=== PATIENT | female | born 1935 | race Caucasian/White ===

== ENCOUNTER 2022-08-29 11:41 | Emergency (ER) | payer MEDICARE, SELFPAY ==
[2022-08-29 11:58] VITALS: BP 114/64; PULSE 90; RESP 16; TEMP 36.2; O2SAT 97
--- NOTE | 2022-08-29 14:27 | ED.URI ---
HPI - URI/Sore Throat General Chief Complaint: Upper Respiratory Infection Stated Complaint: vaginal itching and cough Time Seen by Provider: 08/29/22 14:20 Source: patient, RN notes reviewed and old records reviewed Mode of arrival: ambulatory Limitations: no limitations History of Present Illness HPI Narrative: 86 year old female present ambulatory to [facility] care with complaints of dry/loose cough, decreased appetite, trouble sleeping for the past 5 days. Patient reports that she has taken 2 rounds of Macrobid for UTI's and she has vaginal irritation from creams they gave her for vaginitis. Patient states that every time she uses cream she has irritation and burning. Patient reports that she was seen in the ER for UTI and vaginitis. Patient reports that she has not had any fevers, chills or body aches,she denies any urinary burning frequency or urgency. MD elicited complaint: cough, rhinorrhea and other (decreased appetite, vaginal irritation) Onset (ago): day(s) (cough) Treatments prior to arrival: other (Mucinex) Related Data Home Medications Medication Instructions Recorded Confirmed atorvastatin 10 mg tablet 10 mg PO DAILY 08/29/22 08/29/22 clotrimazole 1 % topical cream 1 applic topical BID 08/29/22 08/29/22 gabapentin 100 mg capsule 100 mg PO TID 08/29/22 08/29/22 glucosamine sulfate 500 mg tablet 500 mg PO DAILY 08/29/22 08/29/22 (Glucosamine) hydrochlorothiazide 12.5 mg tablet 12.5 mg PO DAILY 08/29/22 08/29/22 losartan 25 mg tablet 25 mg PO DAILY 08/29/22 08/29/22 metoprolol succinate 25 mg 25 mg PO DAILY 08/29/22 08/29/22 tablet,extended release 24 hr nitrofurantoin 100 mg PO BID 08/29/22 08/29/22 monohydrate/macrocrystals 100 mg capsule Allergies Allergy/AdvReac Type Severity Reaction Status Date / Time codeine Allergy Mild Unknown Verified 08/29/22 13:25 Review of Systems Review of Systems: CONSTITUTIONAL: Denies malaise, chills, sweats, or fever. EYES: Denies visual changes, redness, or discharge. ENT: Reports rhinorrhea, congestion, no sinus pain, otalgia and sore throat. CARDIOVASCULAR: Denies chest pain, palpitations, or edema. RESPIRATORY: Reports cough.? Denies dyspnea. GASTROINTESTINAL: Denies abdominal pain, nausea, vomiting, diarrhea SKIN: Denies rash or itching, reports vaginal irritation with prescribed creams MUSCULOSKELETAL: Denies myalgia. NEUROLOGIC: Denies headache. All systems reviewed & are unremarkable except as noted in HPI and below PMFSH Past Medical History Medical History (Updated 09/03/22 @ 13:20 by Keshia Chow NP) Elevated cholesterol Hypertension Neuropathy UTI (urinary tract infection) Social History Social History (Updated 09/03/22 @ 13:21 by Keshia Chow NP) Smoking status: Never smoker Alcohol intake: unknown Substance use type: does not use Gender identity (if verbalized by the patient): Female Comments At time of signature, agree with nursing past medical, surgical, social and family history. There is no relevant family history pertinent to the presenting complaint Exam Narrative: GENERAL: Well-appearing, well-nourished, and in no acute distress. HEAD: Normocephalic EYES: PERRLA, conjunctivae clear ENT: Nares clear, turbinates edematous and erythematous,yellowish to clear discharge. Mucous membranes moist. TM pearly duong with dull light reflex bilaterally; no tragal tenderness. Oropharynx erythematous without lesions. Tonsils not enlarged and without exudate, no drooling, no hoarseness, no trismus, uvula midline. NECK: Supple. No lymphadenopathy CHEST: Clear to auscultation, breath sounds equal. No wheezing, rhonchi, rales, or stridor. No respiratory distress, speaks in full sentences. dry and loose cough light yellowish phlegm SAO2 97% on room air HEART: Regular rate and rhythm. No murmur heard. SKIN: Warm, dry, no rash. NEURO: Alert and oriented x3. PSYCH: Normal mood and affect Course Cou
== END 2022-08-29 14:43 | disposition home or self-care (01) ==
PROVIDERS: Emergency Provider Registered Nurse; PCP Internal Medicine
DX: J06.9 Acute upper respiratory infection, unspecified (principal); E78.00 Pure hypercholesterolemia, unspecified; I10 Essential (primary) hypertension; G62.9 Polyneuropathy, unspecified
CPT/HCPCS: 87804; 99213; G0463